=== PATIENT | male | born 1970 | race Caucasian/White ===

== ENCOUNTER 2016-11-28 22:12 | Emergency (ER) | payer MEDICARE, OTHER ==
[~2016-11-28 22:12] MED LIST: CYCLOBENZAPRINE5 MG PO; LISINOPRIL20 MG PO; LORTAB 7.51 TAB 7.5/ PO; NEXIUM PO; SEROQUEL
== END 2016-11-29 00:18 | disposition left against medical advice (07) ==
LOC: CED 22:12
DX: R33.9 Retention of urine, unspecified (principal); F20.9 Schizophrenia, unspecified
CPT/HCPCS: 99283